=== PATIENT | male | born 1965 | race African-American/Black ===

== ENCOUNTER 2020-12-08 07:58 | Day surgery (SDC) | payer OTHER, SELFPAY ==
[~2020-12-08] VITALS: Ht 167.6 cm; Wt 83.9 kg
[2020-12-08] MEDS ORDERED: diphenhydrAMINE 50 MG/ML VIAL ONE (10:02)
[2020-12-08] MEDS ORDERED: fentaNYL citrate 0.05 MG/ML VIAL ONE (10:02)
[2020-12-08] MEDS ORDERED: MIDAZOLAM 5 MG/5 ML VIAL ONE ×2 (10:03→10:04)
[2020-12-08] MEDS ORDERED: LIDOCAINE 2% 100 MG/5 ML UJET TP ONE (10:03)
[2020-12-08] MEDS ORDERED: fentaNYL citrate 0.05 MG/ML VIAL IVP ONE (10:55)
[2020-12-08] MEDS ORDERED: MIDAZOLAM 2 MG/2 ML VIAL IVP ONE (10:55)
== END 2020-12-08 11:15 | disposition home or self-care (01) ==
LOC: MDS 07:58 → MMU 07:59 → MDS 11:15
PROVIDERS: ATTEND Internal Medicine Gastroenterology
DX: K62.5 Hemorrhage of anus and rectum (principal); K20.0 Eosinophilic esophagitis; K44.9 Diaphragmatic hernia without obstruction or gangrene; K57.92 Diverticulitis of intestine, part unspecified, without perforation or abscess without bleeding; Z20.828 Contact with and (suspected) exposure to other viral communicable diseases; Z79.899 Other long term (current) drug therapy
CPT/HCPCS: 43239; 88305; J1200; J2250; J3010; U0003

== ENCOUNTER 2021-01-12 06:28 | Day surgery (SDC) | payer OTHER, SELFPAY ==
[~2021-01-12] VITALS: Ht 167.6 cm; Wt 81.6 kg
[2021-01-12] MEDS ORDERED: MIDAZOLAM 5 MG/5 ML VIAL ONE (07:42)
[2021-01-12] MEDS ORDERED: diphenhydrAMINE 50 MG/ML VIAL ONE (07:42)
[2021-01-12] MEDS ORDERED: fentaNYL citrate 0.05 MG/ML VIAL ONE (07:42)
[2021-01-12] MEDS ORDERED: LIDOCAINE 2% 100 MG/5 ML UJET TP ONE (07:42)
[2021-01-12] MEDS ORDERED: MIDAZOLAM 2 MG/2 ML VIAL IVP ONE (10:45)
[2021-01-12] MEDS ORDERED: fentaNYL citrate 0.05 MG/ML VIAL IVP ONE (10:45)
== END 2021-01-12 08:55 | disposition home or self-care (01) ==
LOC: MDS 06:28 → MMU 06:28 → MDS 08:55
PROVIDERS: ATTEND Internal Medicine Gastroenterology
DX: K62.5 Hemorrhage of anus and rectum (principal); K57.30 Diverticulosis of large intestine without perforation or abscess without bleeding; K20.0 Eosinophilic esophagitis; Z79.899 Other long term (current) drug therapy; Z20.822 Contact with and (suspected) exposure to COVID-19
CPT/HCPCS: 45378; J2250; J3010; U0003; J1200

== ENCOUNTER 2021-08-24 06:30 | Day surgery (SDC) | payer OTHER, SELFPAY ==
[~2021-08-24] VITALS: Ht 167.6 cm; Wt 86.2 kg
[2021-08-24] MEDS ORDERED: fentaNYL citrate 0.05 MG/ML VIAL ONE (08:03)
[2021-08-24] MEDS ORDERED: MIDAZOLAM 5 MG/5 ML VIAL ONE (08:05)
[2021-08-24] MEDS ORDERED: diphenhydrAMINE 50 MG/ML VIAL ONE (08:05)
[2021-08-24] MEDS ORDERED: LIDOCAINE 2% 100 MG/5 ML UJET TP ONE (08:05)
[2021-08-24] MEDS ORDERED: MIDAZOLAM 2 MG/2 ML VIAL IVP ONE (11:50)
[2021-08-24] MEDS ORDERED: fentaNYL citrate 0.05 MG/ML VIAL IVP ONE (11:50)
== END 2021-08-24 09:40 | disposition home or self-care (01) ==
LOC: MDS 06:30 → MMU 06:30 → MDS 09:40
PROVIDERS: ATTEND Internal Medicine Gastroenterology
DX: Z12.11 Encounter for screening for malignant neoplasm of colon (principal); R11.0 Nausea; K57.30 Diverticulosis of large intestine without perforation or abscess without bleeding; Z20.822 Contact with and (suspected) exposure to COVID-19; Z79.899 Other long term (current) drug therapy; Z98.0 Intestinal bypass and anastomosis status
CPT/HCPCS: 45378; 87426; J1200; J2250; J3010